=== PATIENT | female | born 1950 | race Caucasian/White ===

== ENCOUNTER → 2024-01-14 10:13 | Outpatient (REF) | payer OTHER, SELFPAY | LOC: HWRAD 10:13 | PROVIDERS: ATTENDING PHYSICIAN Obstetrics & Gynecology; FAMILY PHYSICIAN Family Medicine | DX: M81.0 Age-related osteoporosis without current pathological fracture (principal); Z12.31 Encounter for screening mammogram for malignant neoplasm of breast | CPT/HCPCS: 77063; 77067; 77080 ==

== ENCOUNTER → 2024-07-30 09:47 | Outpatient (REF) | payer OTHER, MEDICARE, SELFPAY ==
[2024-07-30 11:29] LABS: Microalbumin, Random Urine < 0.6 mg/dl (0.6-1.7)
== END ==
LOC: REG 09:47
PROVIDERS: ATTENDING PHYSICIAN Family Medicine
DX: R94.4 Abnormal results of kidney function studies (principal)
CPT/HCPCS: 76775; 82043

== ENCOUNTER → 2025-01-27 15:45 | Outpatient (REF) | payer OTHER, SELFPAY | LOC: WDC 15:45 | PROVIDERS: ATTENDING PHYSICIAN Obstetrics & Gynecology; FAMILY PHYSICIAN Family Medicine | DX: Z12.31 Encounter for screening mammogram for malignant neoplasm of breast (principal) | CPT/HCPCS: 77063; 77067 ==